=== PATIENT | male | born 1965 | race Caucasian/White ===

== ENCOUNTER 2019-10-03 22:58 | Emergency (ER) | payer BC, SELFPAY ==
[2019-10-03 23:23] VITALS: BP 161/108; PULSE 54; RESP 18; TEMP 36.7; O2SAT 98; BMI 36.3
[2019-10-04 00:42] LABS: Basophils # 0.1 10^3/uL (0.0-0.1); Basophils % 0.5 %; Eosinophils # 0.1 10^3/uL (0.0-0.8); Eosinophils % 0.8 %; Hematocrit 43.9 % (42.0-52.0); Hemoglobin 14.1 g/dL (11.7-16.6); Lymphocytes # 1.4 10^3/uL (0.8-4.8); Lymphocytes % 14.1 %; Mean Corpuscular HGB Conc 32.1 g/dL (30.0-36.0); Mean Corpuscular Hemoglobin 30.4 pg (28.0-34.0); Mean Corpuscular Volume 94.6 fL (80-94); Mean Platelet Volume 11.4 fL (7.4-10.4); Monocytes # 0.5 10^3/uL (0.2-0.9); Monocytes % 5.3 %; Neutrophils # 8.1 10^3/uL (1.8-7.7); Nucleated Red Blood Cells % 0 %; Platelet Count 156 10^3/cmm (130-400); Red Blood Count 4.64 10^6/uL (4.1-5.3); Red Cell Distribution Width 12.8 % (12.1-15.1); White Blood Count 10.2 10^3/uL (4.0-10.0)
--- NOTE | 2019-10-04 01:29 | ED_ITS ---
Entered by Vernell Mcdowell, acting as scribe for Oct 03, 2019 22:58 HPI - Abdominal Pain General: Chief Complaint: Abdominal Pain Stated Complaint: abd pain/vomiting Time Seen by Provider: 10/04/19 01:28 Source: patient Mode of arrival: ambulatory Limitations: no limitations and other (vomiting) History of Present Illness: HPI narrative: 54 yo m came to the er pov for abd pain and vomiting. Pt states that he has been having some right lower abd pain. Pt said that he has not had a fever or is in any pain at this time. Pt said that he has not been having any blood in his urine. Pt also has been vomiting at home, states that she seen some redness to his vomit. Patient had severe pain at home and seems to have passed now he thought he urinated out a small kidney stone he seen a small black speck in the toilet but did not retrieve it. MD elicited complaint: abdominal pain Pertinent past history: other (gallbladder removed) Onset (ago): day(s) (today) Pain Consistency: now resolved Location: RLQ Severity: mild Quality: sharp Radiation: none Migration to: no migration Exacerbating factors: nothing Relieving factors: nothing Associated Symptoms: Reports nausea and vomiting; Denies chills, fever(s) and hematuria Review of Systems General: Reports: other (negative unless marked) Const: Denies: fever or chills Card: Denies: chest pain Resp: Denies: shortness of breath or productive cough GI: Reports: abdominal pain, nausea and vomiting : Denies: blood in urine Musc: Denies: neck pain or back pain Skin/Breast: Denies: rash Neuro: Denies: headache Psych: Denies: anxiety PFSH ED PFSH: Social History Smoking and tobacco status: never smoked Physical Exam Const: COMMON NORMALS: no apparent distress GENERAL APPEARANCE: cooperative and comfortable ORIENTATION/CONSCIOUSNESS: Yes awake, Yes oriented to person, Yes oriented to place and Yes oriented to time HENMT: COMMON NORMALS: normocephalic, head/scalp atraumatic, hearing grossly normal bilaterally, external ears normal, EAC's normal, TM's normal bilaterally, nasal mucous membranes and turbinates normal, moist oral mucous membranes and oropharynx normal HEAD & SCALP: normocephalic and atraumatic NOSE: nasal mucous membranes and turbinates normal EXTERNAL EAR: Yes external ears normal EXTERNAL AUDITORY CANAL: EAC's normal TYMPANIC MEMBRANE: TM's normal bilaterally Eye: COMMON NORMALS: PERRL, EOMs intact bilaterally, conjunctivae normal and no scleral icterus CONJUNCTIVA: Yes conjunctivae normal PUPIL: Yes PERRL Neck/C-Spine: COMMON NORMALS: full ROM, no lymphadenopathy, supple and no JVD Lymph: LYMPHATIC: no lymphadenopathy noted and no lymphedema noted Resp: COMMON NORMALS: normal respiratory effort, no retractions, no use of accessory muscles and clear to auscultation bilaterally AUSCULTATION: clear to auscultation bilaterally Cardio: COMMON NORMALS: no JVD, regular rate, regular rhythm and no murmurs RATE: regular rate RHYTHM: regular rhythm GI: COMMON NORMALS: soft to palpation and no hepatosplenomegaly AUSCULTATION: Yes normoactive bowel sounds PALPATION: Yes soft, No tender, No guarding and Yes no hepatosplenomegaly : COMMON NORMALS: Yes no CVA tenderness BLADDER/KIDNEY EXAM: Yes no CVA tenderness Back/Pelvis: COMMON NORMALS: no CVA tenderness Extremity: COMMON NORMALS: normal to inspection, normal capillary refill, no clubbing, cyanosis or edema, no calf tenderness and no pedal edema Neuro: SENSORIUM/ORIENTATION: Yes oriented to person, Yes oriented to place and Yes oriented to time Skin: COMMON NORMALS: no rashes or lesions noted GENERAL SKIN EXAM: no rashes or lesions noted Course ED course: Patient appears to have Chris passed a stone he does indeed have blood. Based on his description of symptoms think he did have a stone at this point he is pain-free do not think imaging will add a whole lot to it his urine does not show evidence of infection but does show evidence of having had a stone. We will go ahead and discharge him home have him strain his urine given pain medication should he have a recurrence have him follow-up with his primary care doctor. Vital Signs: Vital signs: Vital Signs Temperature 98.0 F 10/03/19 23:23 Pulse Rate 62 10/04/19 03:01 Respiratory Rate 17 10/04/19 03:01 Blood Pressure 136/89 10/04/19 03:01 Pulse Oximetry 97 10/04/19 03:01 MDM - Abdominal Pain Lab Data: Labs: Lab Results 10/03/19 10/03/19 10/04/19 Range/Units 00:15 00:15 02:30 WBC 10.2 H (4.0-10.0) 10^3/ uL RBC 4.64 (4.1-5.3) 10^6/u L Hgb 14.1 (11.7-16.6) g/dL Hct 43.9 (42.0-52.0) % MCV 94.6 H (80-94) fL MCH 30.4 (28.0-34.0) pg MCHC 32.1 (30.0-36.0) g/dL RDW 12.8 (12.1-15.1) % Plt Count 156 (130-400) 10^3/c mm MPV 11.4 H (7.4-10.4) fL Neut % (Auto) 79.0 % Lymph % (Auto) 14.1 % Crosby % (Auto) 5.3 % Eos % (Auto) 0.8 % Baso % (Auto) 0.5 % Neut # (Auto) 8.1 H (1.8-7.7) 10^3/u L Lymph # (Auto) 1.4 (0.8-4.8) 10^3/u L Crosby # (Auto) 0.5 (0.2-0.9) 10^3/u L Eos # (Auto) 0.1 (0.0-0.8) 10^3/u L Baso # (Auto) 0.1 (0.0-0.1) 10^3/u L Nucleated RBC % (a uto) 0 % Nucleated RBCs # 0.0 /100WBC Sodium 134 L (136-145) mmol/L Potassium 4.5 (3.5-5.1) mmol/L Chloride 102 (98-107) mmol/L Carbon Dioxide 23 (22-29) mmol/L Anion Gap 13.5 (5-19) BUN 21 H (6-20) mg/dL Creatinine 1.2 (0.7-1.2) mg/dL GFR Calculation 62.9 L (90-130) mL/min Glucose 143 H (65-115) mg/dL Calculated Osmolal ity 277 L (285-295) mOsm/k g Calcium 9.6 (8.5-10.5) mg/dL Total Bilirubin 0.3 (0.15-1.2) mg/dL AST 24 (0-40) U/L ALT 19 (0-41) U/L Alkaline Phosphata se 74 (40-130) IU/L Total Protein 7.6 (6.6-8.7) g/dL Albumin 4.2 (3.5-5.2) g/dL Globulin 3.4 (1.3-4.6) g/dL Lipase 29 (13-60) U/L Urine Color Yellow (Yellow) Urine Appearance Hazy A (CLEAR) Urine pH 5 (5-7) Ur Specific Gravit y 1.020 (1.005-1.030) Urine Protein Neg (Negative) Urine Glucose (UA) Norm (Normal) Urine Ketones Negative (Negative) Urine Blood 3+ H (Negative) Urine Nitrate Negative (Negative) Urine Bilirubin Neg (NEGATIVE) Urine Urobilinogen Norm (Negative) mg/dL Ur Leukocyte Ashlie ase Negative (Negative) Urine RBC >100 H (0-2) /hpf Urine WBC None (0-5) /hpf Ur Squamous Epith Cells 0-4 H (0-5) Urine Bacteria Trace (NONE) Hyaline Casts 0-4 H Urine Mucus 3+ Discharge Plan Discharge Patient Disposition: Home, Self-Care Clinical Impression: Calculus of kidney Condition: Stable Prescriptions: No Action albuterol sulfate [Ventolin HFA] 90 mcg/actuation HFA aerosol inhaler 2 puff INHALATION Q6H PRN (Reason: shortness of breath or wheezing) Qty: 8.5 RF: 0 hydrocodone-acetaminophen 5-325 mg tablet 1 tab PO Q6H PRN (Reason: pain) 30 Days Qty: 30 RF: 0 Discharge Diet: Usual diet Discharge Activity: Resume usual activity Activity Restrictions/Additional Instructions: Follow-up with your doctor as needed. Discharge Date/Time: 10/04/19 03:05 Coding Level of Care Code ED Internet Programmer for g Fwd Exam Comprehensive The documentation recorded by the Jeremias anthony Stephanie Lyn, accurately reflects the service I personally performed and the decisions made by Perry reyez Curtis L, DO Oct 03, 2019 22:58
[2019-10-04 01:39] LABS: Alanine Aminotransferase 19 U/L (0-41); Albumin Level 4.2 g/dL (3.5-5.2); Alkaline Phosphatase 74 IU/L (40-130); Anion Gap 13.5 (5-19); Aspartate Amino Transferase 24 U/L (0-40); Blood Urea Nitrogen 21 mg/dL (6-20); Calcium 9.6 mg/dL (8.5-10.5); Carbon Dioxide 23 mmol/L (22-29); Chloride 102 mmol/L (98-107); Globulin 3.4 g/dL (1.3-4.6); Glomerular Filtration Rate 62.9 mL/min (90-130); Glucose 143 mg/dL (65-115); Lipase 29 U/L (13-60); Osmolality Calculated 277 mOsm/kg (285-295); Potassium 4.5 mmol/L (3.5-5.1); Sodium 134 mmol/L (136-145); Total Bilirubin 0.3 mg/dL (0.15-1.2); Total Protein 7.6 g/dL (6.6-8.7)
[2019-10-04 02:46] LABS: Add Urine Microscopic? YES; Bilirubin Urine Neg (NEGATIVE); Blood Urine 3+ (Negative); Glucose Urine UA Norm (Normal); Ketones Urine Negative (Negative); Leukocyte Esterase Urine Negative (Negative); Nitrate Urine Negative (Negative); Protein Urine Neg (Negative); Urine Appearance Hazy (CLEAR); Urine Color Yellow (Yellow); Urobilinogen Urine Norm (Negative); pH Urine 5 (5-7)
[2019-10-04 02:52] LABS: Hyaline Casts Urine 0-4; Mucus Urine 3+
[2019-10-04 02:54] LABS: Add Urine Culture? Yes; Bacteria Urine TRACE; RBC Urine >100 /hpf (0-2); Squamous Epithelial Cell Urine 0-4 (0-5)
--- NOTE | 2019-10-04 02:58 | PC.NURSE ---
Patient stated he had Lower right abdominal pain, could not get comfortable at home, pain was intense enough to make him vomit, after arriving to ER patients pain had improved. Patient also stated he saw something small, round, & dark that came out when he urinated.
[2019-10-04 03:01] VITALS: BP 136/89; PULSE 62; RESP 17; O2SAT 97
== END 2019-10-04 03:05 | disposition home or self-care (01) ==
PROVIDERS: Physician Assistant; Emergency Provider Family Medicine
DX: N20.0 Calculus of kidney (principal); Z90.49 Acquired absence of other specified parts of digestive tract
CPT/HCPCS: 12345; 36415; 80053; 81001; 83690; 85025; 87086; 99282; A9270

== ENCOUNTER → 2020-03-26 11:49 | Outpatient (BNVA) | payer BC, SELFPAY | PROVIDERS: Visit Provider Nurse Practitioner Family | DX: U07.1 COVID-19 (principal) | CPT/HCPCS: 87635 ==

== ENCOUNTER → 2021-09-01 15:12 | Outpatient (BNVA) | payer BC, SELFPAY | PROVIDERS: Referring Provider Nurse Practitioner Family; Visit Provider Specialist | DX: M25.532 Pain in left wrist (principal) | CPT/HCPCS: 73110 ==

== ENCOUNTER 2022-04-08 11:08 | Outpatient (CLI) | payer BC, SELFPAY ==
--- NOTE | 2022-04-08 11:26 | XR_ITS ---
WS: [id number] CHEST 2 VIEWS HISTORY: SHORTNESS OF BREATH COMPARISON: 06/12/2019 Lungs: Clear with no abnormality. No pleural effusion or pneumothorax. Obtuse area of pleural thicken ing along the inferior lateral RIGHT thorax. This is present on a prior studies probably focal fat. Cardiac size: Normal. Mediastinum/Aorta: Normal mediastinum. Bones: Normal. XR/XR chest 2V* [id number] IMPRESSION: Stable chest. No acute cardiopulmonary disease.
== END 2022-04-08 11:09 | disposition home or self-care (01) ==
LOC: RAD 11:24
PROVIDERS: Visit Provider Nurse Practitioner Family
DX: R06.02 Shortness of breath (principal)
CPT/HCPCS: 71046

== ENCOUNTER → 2022-09-25 07:38 | Outpatient (BNVA) | payer BC, SELFPAY | PROVIDERS: Visit Provider Student in an Organized Health Care Education/Training Program | DX: G56.03 Carpal tunnel syndrome, bilateral upper limbs (principal); R20.0 Anesthesia of skin; R20.2 Paresthesia of skin | CPT/HCPCS: 73110 ==

== ENCOUNTER 2023-10-27 05:43 | Day surgery (SDC) | payer BC, SELFPAY ==
[2023-10-27 06:09] VITALS: BP 140/101; PULSE 56; RESP 18; TEMP 36.3; O2SAT 95
[2023-10-27 06:11] VITALS: BMI 38.6
[2023-10-27] MEDS: ketorolac 30 mg/mL INJ IVP (06:19)
[2023-10-27] MEDS: acetaminophen 1,000 MG/100 ML PIGGYBACK 400 MG IV (06:19)
[2023-10-27] MEDS: sodium chloride 0.9% 1,000 ML 30 ML IV (06:26)
--- NOTE | 2023-10-27 06:50 | W.PM.OPSUD ---
Surgery/Procedure H&P Update DATE OF PROCEDURE: October 27, 2023 DATE H&P PERFORMED: 10/15/23 H&P UPDATE INFORMATION: I have reviewed H&P completed within last 30 days, I have examined patient prior to procedure and No changes to prior documentation PREOP DIAGNOSIS: Right carpal tunnel syndrome PRIMARY INDICATION FOR PROCEDURE: Right carpal tunnel syndrome PLANNED PROCEDURE: Operation Date: 10/27/23 07:00 Proposed Procedures p Carpal Tunnel Release/ RIGHT CARPAL TUNNEL RELEASE(Right) - Gilbert Mckeon DO
[2023-10-27] MEDS: ceFAZolin 3,000 MG in sodium chloride 0.9% (plus) 100 ML 200 MG IV (06:54)
[2023-10-27] MEDS: ROPivacaine 0.5% SDV 30 mL 150 MG INJECTION (07:24)
[2023-10-27] MEDS: lidocaine-epi 1% 20 mL INJ 5 ML INJECTION (07:24)
[2023-10-27 07:40] VITALS: BP 111/66; PULSE 61; RESP 16; TEMP 36.1; O2SAT 92
[2023-10-27 07:45] VITALS: BP 117/81; PULSE 56; RESP 18; O2SAT 92
--- NOTE | 2023-10-27 07:47 | ANES.PREANE2 ---
Pre-Anesthetic Assessment Height/Weight: Height 1.89 m Weight 138.346 kg Temp Pulse Resp BP Pulse Ox O2 Del Method 97 F L 61 16 111/66 92 Room Air 10/27/23 07:40 10/27/23 07:40 10/27/23 07:40 10/27/23 07:40 10/27/23 07:40 10/27/23 07:40 Preop Diagnosis: Right carpal tunnel syndrome Operation Date: 10/27/23 07:00 Proposed Procedures p Carpal Tunnel Release/ RIGHT CARPAL TUNNEL RELEASE(Right) - Gilbert Mckeon DO Familial anesthetic complications: none Was Beta Surendra taken within 24 hours: N/A Was Clonidine taken within 24 hours: N/A Last intake: Intake Last Liquid Date 10/26/23 Last Liquid Time 20:00 Last Solid Date 10/26/23 Last Solid Time 20:00 Social No alcohol and No tobacco Exam alert, oriented x 3, clear to auscultation bilaterally and regular rate & rhythm Airway Submandibular: within normal limits Cervical ROM: within normal limits Mallampati: Class II Dentition: full Metabolic Morbid Obesity and Thyroid Disease Anesthetic Plan ASA status: 3 Anesthesia: MAC Medications/Allergies Home Medications Medication Instructions Recorded Confirmed Last Taken Type albuterol sulfate 90 mcg/actuation 2 puff inhalation Q6H PRN 10/06/19 10/26/23 Unknown Rx aerosol inhaler (Ventolin HFA) shortness of breath or wheezing #8.5 grams citalopram 20 mg tablet 20 mg PO DAILY 10/15/23 10/26/23 10/26/23 History levothyroxine 25 mcg capsule 50 mcg PO DAILY 10/15/23 10/27/23 10/27/23 History loratadine 10 mg tablet (Claritin) 10 mg PO DAILY 10/15/23 10/26/23 10/26/23 History montelukast 10 mg tablet 10 mg PO DAILY 10/15/23 10/26/23 10/26/23 History (Singulair) Allergies Allergy/AdvReac Type Severity Reaction Status Date / Time Tetracyclines Allergy Unknown Verified 10/26/23 10:01 Current Medications Generic Name Dose Route Start Last Admin Trade Name Freq PRN Reason Stop Dose Admin Sodium Chloride 1,000 mls @ 30 mls/hr 10/27/23 06:00 10/27/23 06:26 Sodium Chloride 0.9% IV 10/28/23 05:59 30 mls/hr .Q24H ROMANA Administration PFSH Anesthesia Social History Smoking and tobacco/nicotine status: never used tobacco/nicotine Second hand smoke exposure: No Alcohol intake: never Substance/Drug Use: never Adopted: No Caregiver/support person: Yes Lives independently: No Household members: spouse Housing: House Marital status: Number of children: 2 Number of grandchildren: 0 Highest education level completed: Master's Degree service: No Current occupational status: employed Current occupation: [employer] Current occupational exposures/hazards: No Pets and animals: No Sexually active: Yes Do you think of yourself as: Straight/Heterosexual Current gender identity: Male Special adeel needs: No Agree to transfusion: Yes Data Anesthesia Cardiac Studies: No Data to Display
[2023-10-27 07:50] VITALS: BP 124/71; PULSE 55; RESP 18; O2SAT 92
--- NOTE | 2023-10-27 07:50 | P.BOP_ITS ---
Date of Procedure: 10/27/2023 Surgeon: Gilbert Mckeon DO Hog Room Supervisor(s): None Procedure(s) performed: Right carpal tunnel release Findings of the procedure(s): Right carpal tunnel syndrome underwent procedure as planned without issues or complications Estimated blood loss: 1 mL Specimen(s) removed: None Post-operative diagnosis: Right carpal tunnel syndrome
--- NOTE | 2023-10-27 07:51 | PM.OP ---
Operative Report Date of procedure: October 27, 2023 Surgeon: Gilbert Mckeon DO Procedure: Preoperative diagnosis: Right carpal tunnel syndrome post-op diagnosis: Same Procedure done: 1.?Right carpal tunnel?release Surgeon: Gilbert Mckeon DO Anesthesia: MAC (Local) Estimated blood loss: [1mL Tourniquet time 8 minutes IV fluids: See anesthesia?record Complications: None Findings: See operative?report narrative Condition: stable Disposition: same day Brief History: Patient is a pleasant [58]year-old male with?right carpal tunnel syndrome.? Patient has been worked up in the outpatient setting findings and physical examination consistent with this.? Patient nerve conduction studies years ago consistent with carpal tunnel syndrome.? We detailed out patient's?risk benefits complication alternatives with surgical and nonsurgical treatment options. Through shared decision making, patient agrees to proceed with surgical intervention.? Patient understands and agrees with current plan.? All questions answered.? Patient elects to proceed with surgical intervention with carpal tunnel?release. Procedure: Patient seen and evaluated in the preoperative holding area.? Consent was?reviewed and signed with patient.? Correct extremity was marked.? Patient was seen evaluated by the anesthesia department once cleared for surgery was brought back to the operative suite.? Patient was kept on [facility] in supine position all bony prominences were well-padded patient properly secured to the bed.??Right upper extremity was then placed onto an armboard.? A nonsterile tourniquet was applied to the?RIght upper arm.? Patient underwent anesthesia per the anesthesia department.? Patient's?Right upper extremity was then prepped and draped in standard orthopedic fashion.? Final timeout performed.? Patient?received appropriate preoperative antibiotics. Under sterile aseptic technique patient?received local anesthesia over the preplanned carpal tunnel incision site. Esmarch was used to exsanguinate the?Right upper extremity and tourniquet was insufflated to 250 mmHg. A standard mini open?Right carpal tunnel incision was made.? Starting distally at Johnson's cardinal line in line with the fourth?ray extending proximally distal to the wrist crease centered over the carpal tunnel.? Sharp scalpel incision was made through skin and subcutaneous tissue.? Self-retaining?retractor was placed and the palmar fascia was identified.? This was then split longitudinally and direct visualization of the transverse carpal ligament was then made.? I then utilizing scalpel feathered through the transverse carpal ligament until I entered the floor of the transverse carpal tunnel ligament into the carpal tunnel.? Next I switched to dissection scissors and completed my?release of the transverse carpal ligament distally with care to protect the?recurrent motor branch.? I completely?released into the palmar fat and until no entrapment was noted distally.? Care was made to protect the superficial palmar arch during my distal dissection.?? Next I utilized a nasal speculum placed on top of the transverse carpal ligament and utilize this to?retract the subcutaneous fat and tissue and under direct loupe magnification was able to identify the transverse carpal ligament.? Next I then placed a [place] underneath the transverse carpal tunnel ligament to protect the contents of the carpal tunnel and subsequently utilizing dissection scissors under loupe magnification completely?released the transverse carpal ligament proximally into the median antebrachial fascia.? Care was made to protect the palmar cutaneous branch by keeping my scissors curved ulnarly.? Once completely?released, I then placed my [place] and had appropriate decompression of the carpal tunnel proximally as well as distally.? I then inspected the contents of the carpal tunnel which showed an hourglass shape of the median nerve showing its compression.? No masses were noted.? Tendons appeared healthy.? Wound was then thoroughly irrigated.? Tourniquet deflated.? Hemostasis satisfactory with bipolar electrocautery.? I then closed the incision with interrupted nylon stitches.? Xeroform 4 x 4's and a bulky soft dressing was applied.? Patient was then awakened from anesthesia and taken to PACU in stable condition.? Patient tolerated procedure without complications. Disposition: Patient taken to PACU in stable condition?recovering well.? Dressing clean dry and intact.? Patient will?receive appropriate discharge instructions as well as pain medication postoperatively.? Patient to follow-up with me in the office in 2 weeks.? They understand they may be weightbearing as tolerated to the?right hand.? Patient should keep incision clean dry and intact.? Patient understands if any questions or concerns may contact the office.
[2023-10-27 07:55] VITALS: BP 124/78; PULSE 54; RESP 16; TEMP 36.7; O2SAT 93
[2023-10-27 08:09] VITALS: BP 125/79; PULSE 51; RESP 17; O2SAT 95
--- NOTE | 2023-10-27 15:03 | ANE.PACU2 ---
Inpatient post-anesthesia follow up: Airway intact: Yes Vital signs: Temperature 98.0 F Pulse Rate 51 Respiratory Rate 17 Blood Pressure 125/79 Pulse Oximetry 95 Oxygen Delivery Me thod Room Air Oxygen Flow Rate Fraction of Inspir ed Oxygen Hydration adequate: Yes Nausea and vomiting: No Pain level: 2 Mental status: Baseline
== END 2023-10-27 08:15 | disposition home or self-care (01) ==
PROVIDERS: PCP Nurse Practitioner Family; Visit Provider Student in an Organized Health Care Education/Training Program
PROC: (CPT 64721; principal; 2023-10-27 07:00)
DX: G56.01 Carpal tunnel syndrome, right upper limb (principal); E66.01 Morbid (severe) obesity due to excess calories; Z68.38 Body mass index [BMI] 38.0-38.9, adult
CPT/HCPCS: 64721; J0131; J0690; J1885; J2704; J2795; J3010; J7030

== ENCOUNTER 2024-01-26 06:55 | Day surgery (SDC) | payer BC, SELFPAY ==
[2024-01-26 07:08] VITALS: BP 135/85; PULSE 46; RESP 18; TEMP 36.5; O2SAT 97
[2024-01-26 07:09] VITALS: BMI 36.3
[2024-01-26] MEDS: acetaminophen 1,000 MG/100 ML PIGGYBACK 400 MG IV (07:15)
[2024-01-26] MEDS: sodium chloride 0.9% 1,000 ML 30 ML IV (07:15)
[2024-01-26] MEDS: ketorolac 30 mg/mL INJ IVP (07:15)
--- NOTE | 2024-01-26 07:17 | W.PM.OPSFHP ---
Same Day Surgery H&P Indication for Procedure/HPI DATE OF PROCEDURE: January 26, 2024 CHIEF COMPLAINT/INDICATIONFOR SURGICAL PROCEDURE: Left carpal tunnel syndrome PREOP DIAGNOSIS: Left carpal tunnel syndrome PLANNED PROCEDURE: Operation Date: 01/26/24 08:30 Proposed Procedures p Carpal Tunnel Release(Left) - Gilbert Mckeon DO Medications/Allergies* Home Medications Medication Instructions Recorded Confirmed Type levothyroxine 50 mcg tablet 50 mcg PO DAILY 01/25/24 01/25/24 History Allergies/Adverse Reactions Allergy/AdvReac Type Severity Reaction Status Date / Time Tetracyclines Allergy Unknown Verified 01/26/24 07:20 Current Medications: Generic Name Dose Route Start Last Admin Trade Name Freq PRN Reason Stop Dose Admin Sodium Chloride 1,000 mls @ 30 mls/hr 01/26/24 07:00 01/26/24 07:15 Sodium Chloride 0.9% IV 01/27/24 06:59 30 mls/hr .Q24H ROMANA Administration Pertinent History/Comorbid Conditions* Social History Smoking and tobacco/nicotine status: never used tobacco/nicotine Second hand smoke exposure: No Alcohol intake: never Substance/Drug Use: never Adopted: No Caregiver/support person: Yes Lives independently: No Household members: spouse Housing: House Marital status: Number of children: 2 Number of grandchildren: 0 Highest education level completed: Master's Degree service: No Current occupational status: employed Current occupation: [employer] Current occupational exposures/hazards: No Pets and animals: No Sexually active: Yes Do you think of yourself as: Straight/Heterosexual Current gender identity: Male Special adeel needs: No Agree to transfusion: Yes Pertinent Exam Findings alert, oriented x 3, operative site marked and procedure specific exam findings Please refer to detailed orthopedic examination of patient's bilateral exam dating back to 10/15/2023: Patient has bilateral carpal tunnel syndrome he is already underwent release of the right carpal tunnel which has had improvement in symptoms. right upper extremity examination normal C-spine ROM No pain. Negative Spurlings Negative Tinel's@ shoulder. Normal ROM Normal ROM elbow. Negative Tinel's@ elbow Right Wrist: Positive median compression test Positive Tinel's on right. Positive Phalens right Subtle thenar weakness. No thenar atrophy noted. No Intrinsic atrophy noted bilaterally. Recommendations Surgery/Procedure today Other Plans: Plan to proceed to the OR today for left carpal tunnel release surgery. Patient understands the ins and outs procedure risk benefits complication alternatives of surgery. He is failed conservative treatment options and at this point in time he had great response to his right carpal tunnel release surgery was planning on holding out further but this is continue to give him issues and as result he would like to pursue left carpal tunnel release surgery. He understands the ins and outs procedure the risk benefits complication alternatives of surgery. Risk of surge include not limited to make a better make it worse injury to nerves vessels or tendons, wound issues, infection, incomplete resolution of paresthesias as well as pillar pain. Patient understands risk of surgery and elects proceed all questions have been answered at this time. Will proceed with left carpal tunnel release surgery today. Coding Level of Care Code Acute Code for Calos Fernandes
[2024-01-26] MEDS: scopolamine 1.5 Patch 1 PATCH TRANSDERMA (07:19)
--- NOTE | 2024-01-26 07:29 | ANES.PREANE2 ---
Pre-Anesthetic Assessment Height/Weight: Height 1.85 m Weight 124.738 kg Temp Pulse Resp BP Pulse Ox O2 Del Method 97.7 F 46 L 18 135/85 97 Room Air 01/26/24 07:08 01/26/24 07:08 01/26/24 07:08 01/26/24 07:08 01/26/24 07:08 01/26/24 07:10 Preop Diagnosis: Left carpal tunnel syndrome Operation Date: 01/26/24 08:30 Proposed Procedures p Carpal Tunnel Release(Left) - Gilbert Mckeon DO Familial anesthetic complications: None Was Beta Surendra taken within 24 hours: N/A Was Clonidine taken within 24 hours: N/A Last intake: > 8 hrs Social No alcohol and No tobacco Exam alert, oriented x 3, clear to auscultation bilaterally and regular rate & rhythm Airway Mallampati: Class IV Dentition: full Metabolic Morbid Obesity and Thyroid Disease Anesthetic Plan ASA status: 2 Anesthesia: MAC Risk of > 500 ml blood loss (7ml/kg in children): No Medications/Allergies Home Medications Medication Instructions Recorded Confirmed Last Taken Type levothyroxine 50 mcg tablet 50 mcg PO DAILY 01/25/24 01/25/24 01/26/24 History Allergies Allergy/AdvReac Type Severity Reaction Status Date / Time Tetracyclines Allergy Unknown Verified 01/26/24 07:20 Current Medications Generic Name Dose Route Start Last Admin Trade Name Freq PRN Reason Stop Dose Admin Sodium Chloride 1,000 mls @ 30 mls/hr 01/26/24 07:00 01/26/24 07:15 Sodium Chloride 0.9% IV 01/27/24 06:59 30 mls/hr .Q24H ROMANA Administration PFSH Anesthesia Social History Smoking and tobacco/nicotine status: never used tobacco/nicotine Second hand smoke exposure: No Alcohol intake: never Substance/Drug Use: never Adopted: No Caregiver/support person: Yes Lives independently: No Household members: spouse Housing: House Marital status: Number of children: 2 Number of grandchildren: 0 Highest education level completed: Master's Degree service: No Current occupational status: employed Current occupation: [employer] Current occupational exposures/hazards: No Pets and animals: No Sexually active: Yes Do you think of yourself as: Straight/Heterosexual Current gender identity: Male Special adeel needs: No Agree to transfusion: Yes Data Anesthesia Cardiac Studies: No Data to Display
[2024-01-26] MEDS: ceFAZolin 2,000 MG in sodium chloride 0.9% (plus) 50 ML 100 MG IV (08:42)
[2024-01-26] MEDS: ROPivacaine 0.5% SDV 30 mL 25 MG INJECTION (09:09)
[2024-01-26] MEDS: lidocaine-epi 1% 20 mL INJ 5 ML INJECTION (09:09)
[2024-01-26 09:23] VITALS: BP 103/64; PULSE 55; RESP 18; TEMP 36.1; O2SAT 98
--- NOTE | 2024-01-26 09:23 | P.BOP_ITS ---
Date of Procedure: [January 26, 2024] Surgeon: [Dr. Linda DO] Fuel Cell Battery Technician(s): [Dinesh Mckeon PA-C] Procedure(s) performed: [Left carpal tunnel release] Findings of the procedure(s): [Left carpal tunnel syndrome] Estimated blood loss: [1 ml] Specimen(s) removed: [N/A] Post-operative diagnosis: [Left carpal tunnel syndrome]
--- NOTE | 2024-01-26 09:25 | P.PCN_ITS ---
PACU note Narrative: Patient is a 58-year-old male that has underwent a left carpal tunnel release. Patient transferred to PACU in stable condition. Pain is well controlled. Dressing on hand is dry and in place. Patient's fingers are warm and well- perfused. Patient can wiggle fingers. normal cap refill under 2 seconds. Patient has normal elbow range of motion. Unable to assess sensation due to residual localized anesthetic. Exam: awake Disposition: discharged
[2024-01-26 09:28] VITALS: BP 111/66; PULSE 50; RESP 18; O2SAT 96
[2024-01-26 09:33] VITALS: BP 109/69; PULSE 50; RESP 18; O2SAT 97
[2024-01-26 09:43] VITALS: BP 115/78; PULSE 51; RESP 16; TEMP 36.1; O2SAT 98
[2024-01-26 10:01] VITALS: BP 123/89; PULSE 47; RESP 18; TEMP 36.2; O2SAT 100
--- NOTE | 2024-01-26 10:15 | ANE.PACU2 ---
Inpatient post-anesthesia follow up: Airway intact: Yes Vital signs: Temperature 97.1 F Pulse Rate 47 Respiratory Rate 18 Blood Pressure 123/89 Pulse Oximetry 100 Oxygen Delivery Me thod Room Air Oxygen Flow Rate 8 Fraction of Inspir ed Oxygen Hydration adequate: Yes Nausea and vomiting: No Pain level: 1 Mental status: Baseline
--- NOTE | 2024-01-26 12:45 | PM.OP ---
Operative Report Date of procedure: January 26, 2024 Surgeon: Gilbert Mckeon DO Procedure: Preop diagnosis: Left carpal tunnel syndrome Post-op diagnosis: Same Procedure done: 1.?Left carpal tunnel?release Surgeon: Gilbert Mckeon DO Anesthesia: MAC (Local) Estimated blood loss: [1?]mL Tourniquet time [ 9]minutes IV fluids: See anesthesia?record Complications: None Findings: See operative?report narrative Condition: stable Disposition: same day Brief History: Patient is a pleasant [?58 ]year-old [M ] with?Left carpal tunnel syndrome.? Patient has been worked up in the outpatient setting findings and physical examination consistent with this.? Patient's has tried carpal tunnel injections which only provided short-term temporary relief and at this point time elects to pursue surgical intervention. He has had good response to his right carpal tunnel release surgery. We detailed out patient's?risk benefits complication alternatives with surgical and nonsurgical treatment options. Through shared decision making, patient agrees to proceed with surgical intervention of the left carpal tunnel?release .? Patient understands and agrees with current plan.? All questions answered.? Patient elects to proceed with surgical intervention with carpal tunnel?release. Procedure: Patient seen and evaluated in the preoperative holding area.? Consent was?reviewed and signed with patient.? Correct extremity was marked.? Patient was seen evaluated by the anesthesia department once cleared for surgery was brought back to the operative suite.? Patient was kept on [facility] in supine position all bony prominences were well-padded patient properly secured to the bed.??Left upper extremity was then placed onto an armboard.? A nonsterile tourniquet was applied to the?Left upper arm.? Patient underwent anesthesia per the anesthesia department.? Patient's?Left upper extremity was then prepped and draped in standard orthopedic fashion.? Final timeout performed.? Patient?received appropriate preoperative antibiotics. Under sterile aseptic technique patient?received local anesthesia over the preplanned carpal tunnel incision site. Esmarch was used to exsanguinate the?Left upper extremity and tourniquet was insufflated to 250 mmHg. A standard mini open?Left carpal tunnel incision was made.? Starting distally at Johnson's cardinal line in line with the fourth?ray extending proximally distal to the wrist crease centered over the carpal tunnel.? Sharp scalpel incision was made through skin and subcutaneous tissue.? Self-retaining?retractor was placed and the palmar fascia was identified.? This was then split longitudinally and direct visualization of the transverse carpal ligament was then made.? I then utilizing scalpel feathered through the transverse carpal ligament until I entered the floor of the transverse carpal tunnel ligament into the carpal tunnel.? Next I switched to dissection scissors and completed my?release of the transverse carpal ligament distally with care to protect the?recurrent motor branch.? I completely?released into the palmar fat and until no entrapment was noted distally.? Care was made to protect the superficial palmar arch during my distal dissection.?? Next I utilized a nasal speculum placed on top of the transverse carpal ligament and utilize this to?retract the subcutaneous fat and tissue and under direct loupe magnification was able to identify the transverse carpal ligament.? Next I then placed a [place] underneath the transverse carpal tunnel ligament to protect the contents of the carpal tunnel and subsequently utilizing dissection scissors under loupe magnification completely?released the transverse carpal ligament proximally into the median antebrachial fascia.? Care was made to protect the palmar cutaneous branch by keeping my scissors curved ulnarly.? Once completely?released, I then placed my [place] and had appropriate decompression of the carpal tunnel proximally as well as distally.? I then inspected the contents of the carpal tunnel which showed an hourglass shape of the median nerve showing its compression.? No masses were noted.? Tendons appeared healthy.? Wound was then thoroughly irrigated.? Tourniquet deflated.? Hemostasis satisfactory with bipolar electrocautery.? I then closed the incision with interrupted nylon stitches.? Xeroform 4 x 4's and a bulky soft dressing was applied.? Patient was then awakened from anesthesia and taken to PACU in stable condition.? Patient tolerated procedure without complications. Disposition: Patient taken to PACU in stable condition?recovering well.? Dressing clean dry and intact.? Patient will?receive appropriate discharge instructions as well as pain medication postoperatively.? Patient to follow-up with me in the office in 2 weeks.? They understand they may be weightbearing as tolerated to the?Left hand.? Patient should keep incision clean dry and intact.? Patient understands if any questions or concerns may contact the office.
== END 2024-01-26 10:15 | disposition home or self-care (01) ==
PROVIDERS: PCP Nurse Practitioner Family; Visit Provider Student in an Organized Health Care Education/Training Program
PROC: (CPT 64721; principal; 2024-01-26 08:30)
DX: G56.02 Carpal tunnel syndrome, left upper limb (principal); E66.01 Morbid (severe) obesity due to excess calories; Z68.36 Body mass index [BMI] 36.0-36.9, adult
CPT/HCPCS: 64721; J0131; J0690; J1885; J2704; J2795; J3010; J7030

== ENCOUNTER → 2024-02-08 07:19 | Outpatient (BNVA) | payer BC, SELFPAY | PROVIDERS: PCP Nurse Practitioner Family; Visit Provider Physician Assistant | DX: M76.892 Other specified enthesopathies of left lower limb, excluding foot (principal) | CPT/HCPCS: 73560; 73565 ==

== ENCOUNTER 2024-07-04 07:23 | Outpatient (CLI) | payer BC, SELFPAY ==
--- NOTE | 2024-07-04 07:27 | MR_ITS ---
WS: [id number] MRI LEFT KNEE NONCONTRAST TECHNIQUE: Axial PD, coronal PD fat sat, coronal PD, sagittal PD, and sagittal PD fat-sat images obta ined. CLINICAL INFORMATION: left knee pain COMPARISON: None. FINDINGS: Distal quadriceps and patella tendons are in fact. Hypertrophic patella. ACL and PCL are intact. Smal l suprapatellar effusion. Grade III chondromalacia patella. No subchondral edema. Medial and lateral patellar retinaculum appear intact. Prepatellar soft tissue edema. Moderate to advanced narrowing medial and lateral joint compartments. Grade III chondromalacia in the medial joint compartment. Lateral meniscus is normal. Horizontal tear posterior horn medial meniscus extending to the inferior and peripheral articular surface with blunting of the posterior horn. Shira pheral extrusion of the medial and lateral meniscus. Grade 2 injury MCL which appears intact. Normal lateral collateral ligament. MR/MR knee LT wo con* [id number] IMPRESSION: 1. 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 2. ACL and PCL appear intact. 3. Horizontal tear involving the posterior horn medial meniscus extending to t he inferior and peripheral articular surface with blunting of the posterior hor n medial meniscus. 4. Grade III chondromalacia medial joint compartment. 5. Grade III chondromalacia patella. 6. Grade 2 injury medial collateral ligament with fluid and edema along the ibarra perficial and deep fibers. 7. Small suprapatellar effusion. Outbridge grading: grade III: partial-thickness cartilage loss with focal ulcer ation
== END 2024-07-04 07:24 | disposition home or self-care (01) ==
PROVIDERS: PCP Nurse Practitioner Family; Visit Provider Student in an Organized Health Care Education/Training Program
DX: M17.12 Unilateral primary osteoarthritis, left knee (principal); S83.412A Sprain of medial collateral ligament of left knee, initial encounter; M23.222 Derangement of posterior horn of medial meniscus due to old tear or injury, left knee; M94.262 Chondromalacia, left knee; X58.XXXA Exposure to other specified factors, initial encounter
CPT/HCPCS: 73721